=== PATIENT | female | born 1930 | race Asian ===

== ENCOUNTER 2018-05-08 11:51 | Emergency (ER) | payer MEDICARE, OTHER | END 2018-05-08 16:10 | disposition home or self-care (01) | LOC: E/R 11:51 | DX: M25.552 Pain in left hip (principal); I25.10 Atherosclerotic heart disease of native coronary artery without angina pectoris; Z95.1 Presence of aortocoronary bypass graft; Z79.82 Long term (current) use of aspirin; Z96.642 Presence of left artificial hip joint | CPT/HCPCS: 72170; 73510; 99283-25 ==